=== PATIENT | female | born 1995 | race Caucasian/White ===

== ENCOUNTER 2021-05-05 13:58 | Emergency (ER) | payer OTHER ==
[2021-05-05 14:07] VITALS: BP 135/82
[2021-05-05] MEDS ORDERED: CHERRY SYRUP 10 ML UDC PO ONE (14:19)
[2021-05-05] MEDS ORDERED: IBUPROFEN 800 MG TABLET PO STA (14:19)
[2021-05-05] MEDS ORDERED: DEXAMETHASONE 10 MG/ML VIAL PO STA (14:19)
--- NOTE | 2021-05-05 14:20 | ED Physician Documentation ---
History of Present Illness - Stated complaint Stated Complaint: SORE THROAT - Chief complaint Chief Complaint: Heent - History obtained from History obtained from: Patient - History of Present Illness Timing: Today Pain level max: 5 Pain level now: 4 - Additonal information Additional information: 26-year-old female presents to the emergency department stating for the past 4 days she has had nasal congestion and a right-sided sore throat. Worse with swallowing, nothing makes it better. No fevers. No chills. Initially had a very mild cough, none now. Has had her Covid vaccination. Denies any possibility of . No fevers. No chills. She noticed a white spot on her throat today so came in for evaluation. Review of Systems Constitutional: denies: Fever, Chills Cardiac: denies: Chest pain / pressure, Palpitations Respiratory: denies: Dyspnea, Wheezing GI: denies: Vomiting, Diarrhea Skin: denies: Rash Musculoskeletal: denies: Neck pain, Back pain Neurologic: denies: Headache PD PAST MEDICAL HISTORY - Past Medical History Past Medical History: No - Past Surgical History Past Surgical History: No - Present Medications Home Medications: Ambulatory Orders Medication Instructions Recorded Confirmed Cetirizine HCl/Pseudoephedrine 1 each PO BID PRN #30 ea 05/05/21 [Zyrtec-D Tablet] Ibuprofen [Motrin] 800 mg PO Q8H PRN #30 tablet 05/05/21 - Allergies Allergies/Adverse Reactions: Allergies Allergy/AdvReac Type Severity Reaction Status Date / Time No Known Drug Allergies Allergy Verified 05/05/21 14:07 - Social History Does the pt smoke?: No Smoking Status: Never smoker Does the pt drink ETOH?: Yes Does the pt have substance abuse?: No - Immunizations Immunizations are current?: Yes PD ED PE NORMAL - Vitals Vital signs reviewed: Yes - General General: Alert and oriented X 3, No acute distress - HEENT HEENT: PERRL, Ears normal, Moist mucous membranes, Other (Mild posterior pharyngeal erythema with right-sided tonsillar exudate. Uvula midline. Normal phonation. No trismus.) - Neck Neck: Supple, no meningeal sign, Other (Mild cervical lymphadenopathy, anterior, right side) - Cardiac Cardiac: RRR, Strong equal pulses - Respiratory Respiratory: No respiratory distress, Clear bilaterally - Abdomen Abdomen: Soft, Non tender, Non distended - Derm Derm: Warm and dry, No rash - Neuro Neuro: Alert and oriented X 3 - Psych Psych: Normal mood, Normal affect Results - Vitals Vitals: Vital Signs - 24 hr 05/05/21 14:05 Temperature 36.5 C Heart Rate 84 Respiratory 16 Rate Blood Pressure 135/82 H O2 Saturation 100 Oxygen O2 Source Room air - Labs Labs: Laboratory Tests 05/05/21 14:09 Group A Strep Rapid Negative PD MEDICAL DECISION MAKING - ED course Complexity details: reviewed results, re-evaluated patient, considered differential, d/w patient ED course: Rapid strep is negative. Patient appears to have a viral pharyngitis. She is well-appearing, nontoxic. Afebrile. Tolerating p.o. without difficulty. No peritonsillar or retropharyngeal abscess. Normal phonation. No trismus. Patient given a dose of Decadron and Motrin here. Patient counseled regarding signs and symptoms for which I believe and urgent re-evaluation would be necessary. Patient with good understanding of and agreement to plan and is comfortable going home at this time This document was made in part using voice recognition software. While efforts are made to proofread this document, sound alike and grammatical errors may occur. Departure - Departure Disposition: 01 Home, Self Care Clinical Impression: Viral pharyngitis Condition: Good Instructions: ED Pharyngitis Viral Follow-Up: your,doctor as needed. [Other] Prescriptions: Ibuprofen [Motrin] 800 mg PO Q8H PRN #30 tablet PRN Reason: PAIN &/OR FEVER Cetirizine HCl/Pseudoephedrine [Zyrtec-D Tablet] 1 each PO BID PRN #30 ea PRN Reason: nasal congestion Comments: Your strep test is negative today. We will run a throat culture as well, if this turns positive, we will call you for antibiotics. You were given a dose of the steroid today as well as anti-inflammatory medications. Drink plenty of fluids and rest. Return if you worsen. Discharge Date/Time: 05/05/21 15:00
[2021-05-05 14:31] LABS: RAPID STREP SCREEN Negative (Negative)
== END 2021-05-05 15:00 | disposition home or self-care (01) ==
LOC: ED 13:58
DX: J02.9 Acute pharyngitis, unspecified (principal); B97.89 Other viral agents as the cause of diseases classified elsewhere
CPT/HCPCS: 87070; 87430; 99283; 99284; A9270

== ENCOUNTER 2022-01-16 17:12 | Emergency (ER) | payer OTHER ==
[2022-01-16 17:43] LABS: BILIRUBIN,URINE NEGATIVE (NEGATIVE); GLUCOSE, URINE (UA) NEGATIVE (NEGATIVE); KETONES,URINE (UA) NEGATIVE (NEGATIVE); LEUKOCYTE ESTERASE, URINE NEGATIVE (NEGATIVE); NITRITE,URINE NEGATIVE (NEGATIVE); OCCULT BLOOD,URINE LARGE (NEGATIVE); PH,URINE 6.5 PH (5.0-7.5); PROTEIN,URINE NEGATIVE (NEGATIVE); UROBILINOGEN,URINE 0.2 (NORMAL) E.U./dL (NORMAL)
[2022-01-16 17:44] LABS: BASOPHILS % (AUTO) 0.4 %; EOSINOPHILS # (AUTO) 0.1 10^3/uL (0.0-0.7); HCT - HEMATOCRIT 39.3 % (37.0-47.0); HGB - HEMOGLOBIN 13.4 g/dL (12.0-16.0); LYMPHOCYTES # (AUTO) 3.1 10^3/uL (1.5-3.5); LYMPHOCYTES % (AUTO) 28.6 %; MEAN CORPUSCULAR HEMOGLOBIN 29.5 pg (27.0-31.0); MEAN CORPUSCULAR HGB CONC 34.1 g/dL (32.0-36.0); MEAN CORPUSCULAR VOLUME 86.4 fL (81.0-99.0); MEAN PLATELET VOLUME 9.7 fL (7.9-10.8); MONOCYTES # (AUTO) 0.8 10^3/uL (0.0-1.0); MONOCYTES % (AUTO) 7.7 %; NEUTROPHILS # (AUTO) 6.7 10^3/uL (1.5-6.6); NEUTROPHILS % (AUTO) 62.1 %; PLT - PLATELET COUNT 317 10^3/uL (130-450); RED BLOOD COUNT 4.55 10^6/uL (4.20-5.40); RED CELL DISTRIBUTION WIDTH 12.4 % (12.0-15.0); WHITE BLOOD COUNT 10.8 x10^3/uL (4.8-10.8)
--- NOTE | 2022-01-16 17:44 | ED Physician Documentation ---
History of Present Illness - Stated complaint Stated Complaint: FEMALE - Chief complaint Chief Complaint: Abd Pain - History obtained from History obtained from: Patient - History of Present Illness Timing: Today Pain level max: 0 Pain level now: 0 - Additonal information Additional information: Patient is a 26-year-old female, 2 para 0 who presents to the emergency department with vaginal bleeding today. She states that she was seen by her OB 3 days ago for dark brown blood, had a pelvic ultrasound that showed an IUP, approximately 6 weeks EGA. Had a quantitative hCG yesterday which was increased from prior, unsure what that number is. She states today she had bright red blood vaginally. no pain. Review of Systems Ten Systems: 10 systems reviewed and negative Constitutional: denies: Fever, Chills Throat: denies: Sore throat Cardiac: denies: Chest pain / pressure, Palpitations Respiratory: denies: Dyspnea, Cough GI: denies: Vomiting, Diarrhea Skin: denies: Rash Musculoskeletal: denies: Neck pain, Back pain Neurologic: denies: Headache PD PAST MEDICAL HISTORY - Past Medical History Past Medical History: No - Past Surgical History Past Surgical History: No - Present Medications Home Medications: Ambulatory Orders Medication Instructions Recorded Confirmed Pnv No.95/Ferrous Fum/Folic AC 1 tab PO DAILY 01/16/22 01/16/22 [ [place]] - Allergies Allergies/Adverse Reactions: Allergies Allergy/AdvReac Type Severity Reaction Status Date / Time epinephrine AdvReac Hallucinati Verified 01/16/22 17:17 ons - Social History Does the pt smoke?: No Smoking Status: Never smoker Does the pt drink ETOH?: Yes Does the pt have substance abuse?: No - Immunizations Immunizations are current?: Yes PD ED PE NORMAL - Vitals Vital signs reviewed: Yes - General General: Alert and oriented X 3, No acute distress - HEENT HEENT: PERRL, Moist mucous membranes - Neck Neck: Supple, no meningeal sign - Cardiac Cardiac: RRR, Strong equal pulses - Respiratory Respiratory: No respiratory distress, Clear bilaterally - Abdomen Abdomen: Soft, Non tender, Non distended - Back Back: No spinal TTP - Derm Derm: Warm and dry - Extremities Extremities: No edema, No calf tenderness / cord - Neuro Neuro: Alert and oriented X 3 - Psych Psych: Normal mood, Normal affect Results - Vitals Vitals: Vital Signs - 24 hr 01/16/22 01/16/22 01/16/22 17:18 17:20 19:20 Temperature 36.9 C 36.9 C Heart Rate 89 89 99 Respiratory 19 19 16 Rate Blood Pressure 130/62 130/62 124/61 O2 Saturation 98 98 100 01/16/22 20:58 Temperature Heart Rate 99 Respiratory 16 Rate Blood Pressure 124/61 O2 Saturation 100 Oxygen O2 Source Room air - Labs Labs: Laboratory Tests 01/16/22 01/16/22 01/16/22 17:27 17:35 17:35 WBC 10.8 RBC 4.55 Hgb 13.4 Hct 39.3 MCV 86.4 MCH 29.5 MCHC 34.1 RDW 12.4 Plt Count 317 MPV 9.7 Neut # (Auto) 6.7 H Lymph # (Auto) 3.1 M[place]at # (Auto) 0.8 Eos # (Auto) 0.1 Baso # (Auto) 0.0 Absolute Nucleated RBC 0.00 Nucleated RBC % 0.0 Sodium 134 L Potassium 3.2 L Chloride 101 Carbon Dioxide 23 Anion Gap 10.0 BUN 11 Creatinine 0.7 Estimated GFR (MDRD) 100 Glucose 106 H Calcium 9.7 Total Bilirubin 0.5 AST 12 ALT 11 Alkaline Phosphatase 46 Total Protein 8.1 Albumin 4.8 Globulin 3.3 Albumin/Globulin Ratio 1.5 Lipase 34 HCG, Quant Urine Color YELLOW Urine Clarity CLEAR Urine pH 6.5 Ur Specific [place] <=1.005 Urine Protein NEGATIVE Urine Glucose (UA) NEGATIVE Urine Ketones NEGATIVE Urine Occult Blood LARGE H Urine Nitrite NEGATIVE Urine Bilirubin NEGATIVE Urine Urobilinogen 0.2 (NORMAL) Ur Leukocyte Esterase NEGATIVE Urine RBC 0-5 Urine WBC 0-3 Ur Squamous Epith Cells FEW Squamous Urine Bacteria Few Ur Microscopic Review INDICATED Urine Culture Comments NOT INDICATED Blood Type 01/16/22 01/16/22 17:35 17:35 WBC RBC Hgb Hct MCV MCH MCHC RDW Plt Count MPV Neut # (Auto) Lymph # (Auto) [place] # (Auto) Eos # (Auto) Baso # (Auto) Absolute Nucleated RBC Nucleated RBC % Sodium Potassium Chloride Carbon Dioxide Anion Gap BUN Creatinine Estimated GFR (MDRD) Glucose Calcium Total Bilirubin AST ALT Alkaline Phosphatase Total Protein Albumin Globulin Albumin/Globulin Ratio Lipase HCG, Quant 89401.00 Urine Color Urine Clarity Urine pH Ur Specific [place] Urine Protein Urine Glucose (UA) Urine Ketones Urine Occult Blood Urine Nitrite Urine Bilirubin Urine Urobilinogen Ur Leukocyte Esterase Urine RBC Urine WBC Ur Squamous Epith Cells Urine Bacteria Ur Microscopic Review Urine Culture Comments Blood Type A POSITIVE - Rads (name of study) OB ultrasound Radiology: Final report received, EMP read contemporaneously, See rad report PD MEDICAL DECISION MAKING - ED course Complexity details: reviewed results, re-evaluated patient, considered differential, d/w patient ED course: 26-year-old female 2 para 0 with vaginal bleeding today. Ultrasound shows a crown-rump length IUP 6 weeks 0 days. No heart rate identified. Recommend serial beta hCGs. Patient without evidence of ectopic. Results were reviewed with the patient. Patient counseled regarding signs and symptoms for which I believe and urgent re-evaluation would be necessary. Patient with good understanding of and agreement to plan and is comfortable going home at this time This document was made in part using voice recognition software. While efforts are made to proofread this document, sound alike and grammatical errors may occur. IMPRESSION: Findings are consistent with a very early intrauterine . There is a crown-rump length measuring 6 weeks 0 days. No heart rate is identified. Comment: It is possible to have a very early viable intrauterine in which a crown-rump length visualized without identifying a heartbeat. Therefore, recommend serial beta hCGs and consideration of a follow-up ultrasound in 1-2 weeks. Departure - Departure Disposition: 01 Home, Self Care Clinical Impression: Vaginal bleeding affecting early Condition: Good Instructions: ED Miscarriage Poss Follow-Up: MILAGRO COLLIER ARNP [Primary Care Provider] - Nydia Soler MD [Physician No Access] - Within 3 Days Comments: Your hCG level today is 71,878. 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 They will likely want another test in 2 to 3 days. They can send this order to the lab for you. You appear to have a small subchorionic hemorrhage on ultrasound. They may want to repeat an ultrasound in 1 week as well. Please return if you worsen. Your ultrasound report is below. Ultrasound Results: IMPRESSION: Findings are consistent with a very early intrauterine . There is a crown-rump length measuring 6 weeks 0 days. No heart rate is identified. Comment: It is possible to have a very early viable intrauterine in which a crown-rump length visualized without identifying a heartbeat. Therefore, recommend serial beta hCGs and consideration of a follow-up ultrasound in 1-2 weeks. Discharge Date/Time: 01/16/22 20:58
--- OUTSIDE RECORDS SUMMARY | 2022-01-16 17:44 | EXTERNAL MEDICAL SUMMARY RPT | Continuity of Care Document ---
:1995 Author Organization [facility] Address [address] [place] [address] Phone Care Team Providers Name Role Phone GriffithsAshely Unavailable Unavailable Allergies No information. Encounters No information. Medications No information. Problems date description facility 20220115 Hemorrhage in early , unspecif [facility] [id number] Hemorrhage in early , unspecif [facility] Procedures date description facility [id number] [facility] [id number] [facility] Results No information. Vital Signs date measurement value source 20220112 weight_standard 80.74 lb 20220112 weight_metric 36.62 kg 20220112 height_standard 64 in 20220112 height_metric 162.56 cm 20220112 BP_systolic 132 mm[Hg] 20220112 BP_diastolic 78 mm[Hg] 20220112 BMI 30.5 kg/m2
[2022-01-16 17:54] LABS: CLARITY,URINE CLEAR (CLEAR)
[2022-01-16 17:55] LABS: BACTERIA,URINE Few /HPF (None Seen); RBC,URINE 0-5 /HPF (0-5); SQUAMOUS EPITHELIAL CELL,UR FEW Squamous (<= Few); WBC,URINE 0-3 /HPF (0-5)
[2022-01-16 17:57] LABS: ALBUMIN 4.8 g/dL (3.2-5.5); ALBUMIN/GLOBULIN RATIO 1.5 (1.0-2.2); BILIRUBIN,TOTAL 0.5 mg/dL (0.2-1.0); CALCIUM 9.7 mg/dL (8.5-10.3); CREATININE 0.7 mg/dL (0.4-1.0); POTASSIUM 3.2 mmol/L (3.5-5.0); TOTAL PROTEIN 8.1 g/dL (6.7-8.2)
--- NOTE | 2022-01-16 19:13 | Ultrasound Report ---
PROCEDURE: OB First Trimester w/TV INDICATIONS: vag bleed, 6 weeks preg OUTSIDE/PRIOR DATING DATA: Last menstrual period (LMP): 11/16/2021. LMP-based estimated date of delivery (BENEDICTO): 08/23/2022. First dating scan (date and location): 01/16/2022. Estimated date of delivery (BENEDICTO) from first dating scan: 09/11/2022. The below data below was generated using the ultrasound BENEDICTO of 09/11/2022 TECHNIQUE: Real-time scanning was performed of the fetus and maternal pelvic organs, with image documentation. Endovaginal scanning was also performed to better visualize the fetus and maternal ovaries. COMPARISON: None FINDINGS: There is a gestational sac with a yolk sac and a very early crown-rump length. No heart be at is identified. Embryo: [place] length measures 3.7 mm, 6 weeks 0 days Heart rate: Not identified Measurement variability in dating: +/- 4 weeks by LMP, +/- 7 days by mean sac diameter (use before 6 weeks gestation if crown-rump length not able to be measured), +/- 5 days by crown-rump length (6-12 weeks gestation). Maternal organs: Ovaries demonstrate a right ovarian corpus luteal cyst. IMPRESSION: Findings are consistent with a very early intrauterine . There is a crown-rump length measur ing 6 weeks 0 days. No heart rate is identified. Comment: It is possible to have a very early viable intrauterine in which a crown-rump selma th visualized without identifying a heartbeat. Therefore, recommend serial beta hCGs and consideratio n of a follow-up ultrasound in 1-2 weeks. Above discussed with Deyanira Alberto at the time of dictation. Reviewed by: Ede Ruby MD on 01/16/2022 7:12 PM PDT Approved by: Ede Ruby MD on 01/16/2022 7:12 PM PDT Station ID: [id number]
[2022-01-16 19:33] VITALS: BP 124/61
== END 2022-01-16 20:58 | disposition home or self-care (01) ==
LOC: ED 17:12
DX: O20.9 Hemorrhage in early pregnancy, unspecified (principal); Z3A.01 Less than 8 weeks gestation of pregnancy
CPT/HCPCS: 36415; 80053; 81001; 81003; 83690; 84702; 85025; 86900; 86901; 87086; 99284